=== PATIENT | female | born 1935 | race Caucasian/White ===

== ENCOUNTER 2017-05-31 10:19 | Observation (INO) | payer OTHER ==
[~2017-05-31] VITALS: Ht 154.9 cm; Wt 79.4 kg
[~2017-05-31 10:19] MED LIST: ACETAMINOPHEN1 EACH PO; ASPIR 8181 MG PO; ATENOLOL50 MG PO; ATORVASTATIN CA10 MG PO; BACTRIM DS TAB1 EACH PO; CARDIZEM30 MG PO; DILTIAZEM HCL30 MG PO; Isosorbide Mononitrate PO; LISINOPRIL HCTZ PO; LISINOPRIL10 MG PO; NITRO-BID1 GM TOP; PEPCID20 MG PO; Ranolazine PO
[2017-05-31] MEDS ORDERED: VANCOMYCIN 1GM/NS 250 ML 250 ML IV ONE (12:00)
[2017-05-31] MEDS ORDERED: PIPER-TAZ 3.375 GM 50 ML IV ONE (12:00)
[2017-05-31] MEDS: SODIUM CHLORIDE 0.9% 1000ML 1,000 ML IV SCH (13:31)
[2017-05-31] MEDS ORDERED: OMEPRAZOLE40 MG (13:41)
[2017-05-31] MEDS ORDERED: DIGOXIN125 MCG PO (13:44)
[2017-05-31] MEDS ORDERED: CRESTOR5 MG PO (13:53)
[2017-05-31] MEDS ORDERED: SYMBICORT 16010.2 GM INH (13:53)
[2017-05-31] MEDS ORDERED: LASIX20 MG PO (13:53)
[2017-05-31] MEDS ORDERED: HYDROCHLOROTHIA25 MG PO (13:53)
[2017-05-31] MEDS ORDERED: DUONEB (13:53)
[2017-05-31] MEDS ORDERED: CLONAZEPAM0.5 MG PO (13:53)
[2017-05-31] MEDS ORDERED: OSCAL PO (13:53)
[2017-05-31] MEDS ORDERED: FOSAMAX70 MG PO (13:53)
[2017-05-31] MEDS ORDERED: VITAMIN D1000 UNI1 PO (13:53)
[2017-05-31 16:40] VITALS: BP 109/55
[2017-05-31] MEDS ORDERED: ACETAMINOPHEN 325 MG TAB PO PRN (19:00)
[2017-05-31 21:00] VITALS: BP 112/55
[2017-06-01] VITALS: BP 110/55
[2017-06-01 04:00] VITALS: BP 110/52
[2017-06-01] MEDS: SODIUM CHLORIDE 0.9% 1000ML 1,000 ML IV SCH ×2 (06:06→06:17)
[2017-06-01 08:08] VITALS: BP 118/56
[2017-06-01 08:20] LABS: BASOPHILS # (AUTO) 0.1 (0.0-0.1); BASOPHILS % 0.9 % (0.0-1.0); EOSINOPHILS # (AUTO) 0.3 (0.0-0.4); EOSINOPHILS % 2.7 % (0.0-6.0); HEMATOCRIT 34.7 % (34.2-44.1); HEMOGLOBIN 11.1 g/dL (12.0-16.0); LYMPHOCYTES # (AUTO) 2.1 (1.0-3.2); LYMPHOCYTES % 17.1 % (18.0-39.1); MEAN CORPUSCULAR HEMOGLOBIN 28.5 pg (28-32); MEAN CORPUSCULAR VOLUME 89.2 fL (81-99); MONOCYTES # (AUTO) 0.6 (0.2-0.8); MONOCYTES % 4.8 % (4.4-11.3); NEUTROPHILS # (AUTO) 9.2 (2.1-6.9); PLATELET COUNT 256 x10e3/uL (140-360); RED BLOOD COUNT 3.89 x10e6/uL (3.6-5.1); RED CELL DISTRIBUTION WIDTH 13.9 % (11.7-14.4)
[2017-06-01 08:31] LABS: ANION GAP 13.8 mmol/L (8-16); CALCIUM 8.3 mg/dL (8.4-10.2); CREATININE, SERUM 1.28 mg/dL (0.57-1.11); POTASSIUM 3.8 mmol/L (3.5-5.1)
[2017-06-01] MEDS ORDERED: MULTI-VITAMIN1 EACH PO (11:31)
[2017-06-01] MEDS ORDERED: IPRAT-ALBUT 0.5-3 ML INH (11:33)
[2017-06-01] MEDS ORDERED: ALENDRONATE SODIUM 70 MG TAB PO SCH (11:45)
[2017-06-01] MEDS ORDERED: BUDESONIDE/FORMOTEROL 160/4.5MCG INHALER INH PRN (11:45)
[2017-06-01] MEDS: PREDNISONE 20 MG TAB PO SCH (11:57)
[2017-06-01] MEDS: COLCHICINE 0.6 MG TAB PO SCH ×2 (11:57→17:13)
[2017-06-01 13:00] VITALS: BP 136/56
[2017-06-01] MEDS: ALBUTEROL/IPRATROPIUM 3 ML NEB INH SCH ×2 (15:00→21:30)
[2017-06-01] MEDS ORDERED: ALBUTEROL/IPRATROPIUM 3 ML NEB INH SCH (15:00)
[2017-06-01 15:55] VITALS: BP 117/58
[2017-06-01] MEDS: FAMOTIDINE 20 MG TAB PO SCH (17:13)
[2017-06-01 20:00] VITALS: BP 110/56
[2017-06-01] MEDS ORDERED: SIMVASTATIN 20 MG TAB PO SCH (21:00)
[2017-06-01] MEDS: HEPARIN SOD (PORCINE) 5,000 UNIT/ML VIAL SC SCH (21:50)
[2017-06-02] VITALS: BP 97/55
[2017-06-02 04:00] VITALS: BP 115/55
[2017-06-02] MEDS: ALENDRONATE SODIUM 70 MG TAB PO SCH ×2 (05:26→05:28)
[2017-06-02 06:35] LABS: BASOPHILS # (AUTO) 0.1 (0.0-0.1); BASOPHILS % 0.5 % (0.0-1.0); EOSINOPHILS # (AUTO) 0.1 (0.0-0.4); EOSINOPHILS % 1.1 % (0.0-6.0); HEMATOCRIT 35.8 % (34.2-44.1); HEMOGLOBIN 11.5 g/dL (12.0-16.0); LYMPHOCYTES # (AUTO) 2.8 (1.0-3.2); MEAN CORPUSCULAR HEMOGLOBIN 28.6 pg (28-32); MEAN CORPUSCULAR HGB CONC 32.1 g/dL (31-35); MEAN CORPUSCULAR VOLUME 89.1 fL (81-99); MONOCYTES # (AUTO) 0.6 (0.2-0.8); MONOCYTES % 4.8 % (4.4-11.3); NEUTROPHILS # (AUTO) 9.1 (2.1-6.9); NEUTROPHILS % 71.2 % (38.7-80.0); PLATELET COUNT 294 x10e3/uL (140-360); RED BLOOD COUNT 4.02 x10e6/uL (3.6-5.1); RED CELL DISTRIBUTION WIDTH 13.7 % (11.7-14.4)
[2017-06-02 06:50] LABS: ANION GAP 13.8 mmol/L (8-16); CALCIUM 9.1 mg/dL (8.4-10.2); CREATININE, SERUM 1.17 mg/dL (0.57-1.11); POTASSIUM 3.8 mmol/L (3.5-5.1)
[2017-06-02] MEDS: ALBUTEROL/IPRATROPIUM 3 ML NEB INH SCH ×2 (07:25→14:53)
[2017-06-02 08:00] VITALS: BP 119/58
[2017-06-02] MEDS ORDERED: CLONAZEPAM 0.5 MG TAB PO SCH (09:00)
[2017-06-02] MEDS ORDERED: DIGOXIN 0.125 MG TAB PO SCH (09:00)
[2017-06-02] MEDS ORDERED: CHOLECALCIFEROL 1,000 UNIT TAB PO SCH (09:00)
[2017-06-02] MEDS ORDERED: MULTIVITAMINS/MINERALS TAB PO SCH (09:00)
[2017-06-02] MEDS ORDERED: OSCAL 500 MG PO SCH (09:00)
[2017-06-02] MEDS ORDERED: HYDROCHLOROTHIAZIDE 25 MG TAB PO SCH (09:00)
[2017-06-02] MEDS ORDERED: OYST-CAL-D 500MG TABLET PO SCH (09:00)
[2017-06-02] MEDS ORDERED: FUROSEMIDE 20 MG TAB PO SCH (09:00)
[2017-06-02] MEDS ORDERED: ASPIRIN 81 MG CHEW TAB PO SCH (09:00)
[2017-06-02] MEDS ORDERED: ATENOLOL 50 MG TAB PO SCH (09:00)
[2017-06-02 09:22] VITALS: BP 119/58
[2017-06-02] MEDS: COLCHICINE 0.6 MG TAB PO SCH (09:22)
[2017-06-02] MEDS: FAMOTIDINE 20 MG TAB PO SCH (09:22)
[2017-06-02] MEDS: PREDNISONE 20 MG TAB PO SCH (09:23)
[2017-06-02] MEDS: HEPARIN SOD (PORCINE) 5,000 UNIT/ML VIAL SC SCH (09:24)
[2017-06-02 12:00] VITALS: BP 129/63
[2017-06-02] MEDS ORDERED: COLCRYS0.6 MG PO (15:41)
[2017-06-02] MEDS ORDERED: PREDNISONE20 MG PO (15:41)
--- NOTE | 2017-06-02 15:48 | Discharge Summary ---
PRIMARY CARE DOCTOR: Dr. Nicolle Childress. FINAL DIAGNOSIS: Acute gout attack. SECONDARY DIAGNOSIS 1. Chronic respiratory failure due to chronic obstructive pulmonary disease on home oxygen. 2. Hypertension. 3. Dyslipidemia. HISTORY: Per H\T\P. PROCEDURES/STUDIES PERFORMED: None. HOSPITAL COURSE: Initially per ED impression there was cellulitis. Patient got IV antibiotics. However, by the time I evaluated patient it looked pretty classic for gout attack. Antibiotic was discontinued. Patient was put on colchicine and prednisone. By next day she is much better. NSAIDs were not used due to her CKD. Her uric acid is 10.8. I have updated her PCP. Patient will follow up with her PCP soon. Patient will get another day of prednisone for a 3-day total course and 5 more days of colchicine for a 1-week course. Patient was also found to have newly diagnosed diabetes with a hemoglobin A1c of 8%. I have informed her PCP as well. Smoking cessation was advised as well. CONDITION ON DISCHARGE: Stable. DISCHARGE MEDICATIONS: Please see medication reconciliation form. VANDANA CHRISTOPHER M.D. Job#: [id number]
== END 2017-06-02 16:18 | disposition home or self-care (01) ==
LOC: FSED 10:19 → INTOOBSV 14:44 → MED/SURG2 14:44
PROVIDERS: ADMIT Internal Medicine; ATTEND Internal Medicine
DX: M10.9 Gout, unspecified (principal); L03.115 Cellulitis of right lower limb; I10 Essential (primary) hypertension; R73.9 Hyperglycemia, unspecified; N28.9 Disorder of kidney and ureter, unspecified; J96.10 Chronic respiratory failure, unspecified whether with hypoxia or hypercapnia; J44.9 Chronic obstructive pulmonary disease, unspecified; E78.5 Hyperlipidemia, unspecified; N18.9 Chronic kidney disease, unspecified; Z99.81 Dependence on supplemental oxygen
CPT/HCPCS: 36415 ×2; 73610; 73630; 80048 ×2; 80053; 83036; 84550; 85025 ×3; 87040; 94640 ×3; 99284; G0378 ×3; J1644 ×2; J2543; J3370; J7030 ×2